=== PATIENT | female | born 2000 | race Caucasian/White ===

== ENCOUNTER 2021-10-17 13:22 | Emergency (ER) | payer OTHER ==
[2021-10-17 13:29] VITALS: BP 104/74; PULSE 75; RESP 18; TEMP 98.3; BMI 18.1
[2021-10-17 14:48] LABS: BASO % 0.5 % (0-2.0); EOS % 0.5 % (0-4.5); HEMATOCRIT 42.6 % (32.4-45.2); HEMOGLOBIN 14.5 GM/dL (10.7-15.3); LYMPH % 32.7 % (8-40); MCH 27.7 pg (25.7-33.7); MCHC 33.9 g/dl (32.0-36.0); MEAN CELL VOLUME 81.7 fl (80-96); MEAN PLT VOLUME 7.1 fl (7.5-11.1); NEUT % 59.3 % (42.8-82.8); PLATELET COUNT 313 10^3/uL (134-434); RBC 5.21 M/mm3 (3.60-5.2); RDW 12.5 % (11.6-15.6)
[2021-10-17 14:57] LABS: HCG,QUALITATIVE URINE Negative
[2021-10-17 14:58] LABS: EPI CELLS >36 /uL (0-25.1); HYALINE CASTS 7 /uL (0-3.1); URINE APPEARANCE CLOUDY; URINE BACTERIA >9,000 /uL (0-1359); URINE BILIRUBIN NEGATIVE (NEGATIVE); URINE COLOR YELLOW; URINE GLUCOSE (UA) NEGATIVE (NEGATIVE); URINE KETONE NEGATIVE (NEGATIVE); URINE LEUK ESTERASE 1+ (NEGATIVE); URINE NITRITE POSITIVE (NEGATIVE); URINE PROTEIN TRACE (NEGATIVE); URINE RBC 32 /uL (0-23.9); URINE UROBILINOGEN 0.2 mg/dL (0.2-1.0); URINE WBC 152 /uL (0-25.8)
[2021-10-17 15:16] LABS: ALBUMIN 3.7 g/dl (3.4-5.0)
[2021-10-17 15:19] LABS: CREATININE 0.7 mg/dL (0.55-1.3)
[2021-10-17 15:20] LABS: BILIRUBIN,TOTAL 0.3 mg/dL (0.2-1); TOT PROT 8.1 g/dl (6.4-8.2)
[2021-10-17] MEDS ORDERED: SODIUM CHLORIDE 0.9% 1000 ML INFUS.BAG IV ONE (15:43)
[2021-10-17 17:38] LABS: URINE APPEARANCE CLOUDY; URINE BILIRUBIN NEGATIVE (NEGATIVE); URINE COLOR YELLOW; URINE GLUCOSE (UA) NEGATIVE (NEGATIVE); URINE KETONE TRACE (NEGATIVE); URINE LEUK ESTERASE 1+ (NEGATIVE); URINE NITRITE POSITIVE (NEGATIVE); URINE PROTEIN NEGATIVE (NEGATIVE); URINE UROBILINOGEN 0.2 mg/dL (0.2-1.0)
[2021-10-17 18:46] LABS: EPI CELLS 18.4 /uL (0-25.1); HYALINE CASTS 6.5 /uL (0-3.1); URINE BACTERIA 72506.8 /uL (0-1359); URINE RBC 4.3 /uL (0-23.9); URINE WBC 183.6 /uL (0-25.8)
== END 2021-10-17 19:47 | disposition home or self-care (01) ==
LOC: JER 13:22
DX: N39.0 Urinary tract infection, site not specified (principal)
CPT/HCPCS: 36415; 71046-TC-FY; 71275-TC; 74177-TC; 76705-TC; 76775-TC; 80053; 81003; 83690; 84484; 84703; 85025; 85379; 87086; 87186; 87491; 87591; 93005; 93010; 99285-25; C9803-CS; Q9967; U0003; U0005